=== PATIENT | male | born 1960 | race Caucasian/White ===

== ENCOUNTER 2017-05-19 16:43 | Emergency (ER) | payer OTHER ==
--- NOTE | 2017-05-19 17:14 | C.PDOC ---
History Of Present Illness 56 y/o male with a PMHx of thyroid disease and hypertension, who presents to the ED complaining of dizziness, head spinning, and aching of his right hand, onset last night. Today symptoms persisted. Last night he also told family members he had a pinching, stabbing pain in the left chest, which lasted 2-3 sec and was gone, with no shortness of breath. Now patient is stating he has no recollection of this. His main complaint is the aching pain of right hand, at the mid-hand down through fingers, associated with weakness when forming a grasp. Also complains of tightness to muscles in the back of his head, still has full ROM of the cervical spine/head. PMD: Anna Zuniga Time Seen by Provider: 05/19/17 16:59 Chief Complaint (Nursing): Chest Pain History Per: Patient History/Exam Limitations: no limitations Onset/Duration Of Symptoms: Days (x 2) Current Symptoms Are (Timing): Gone (chest pain) Past Medical History Reviewed: Historical Data, Nursing Documentation, Vital Signs Vital Signs: Last Vital Signs Temp Pulse 66 05/19/17 17:00 Resp 15 05/19/17 17:00 BP 152/88 H 05/19/17 17:00 Pulse Ox 97 05/19/17 17:17 - Medical History PMH: Benign Prostatic Hyperplasia, HTN, Hypercholesterolemia, Hypothyroidism Family History: States: No Known Family Hx - Social History Hx Tobacco Use: No Hx Alcohol Use: No Hx Substance Use: No - Immunization History Hx Tetanus Toxoid Vaccination: No Hx Influenza Vaccination: No Hx Pneumococcal Vaccination: No Review Of Systems Except As Marked, All Systems Reviewed And Found Negative. Cardiovascular: Positive for: Chest Pain Respiratory: Negative for: Shortness of Breath Musculoskeletal: Positive for: Neck Pain (Tightness of muscles), Hand Pain ( Right mid-hand through fingers) Neurological: Positive for: Weakness (forming grasp - right hand), Dizziness ( and head spinning) Physical Exam - Physical Exam Appears: Well, Non-toxic, No Acute Distress Skin: Normal Color, Warm, Dry Head: Atraumatic, Normacephalic Eye(s): bilateral: Normal Inspection, PERRL, EOMI Oral Mucosa: Moist Neck: Normal, Normal ROM, Supple Chest: Symmetrical Cardiovascular: Rhythm Regular, No Murmur Respiratory: Normal Breath Sounds, No Accessory Muscle Use Gastrointestinal/Abdominal: Normal Exam, Bowel Sounds, Soft, No Tenderness Back: Normal Inspection, No Vertebral Tenderness, No Muscle Spasm, No Paraspinal Tenderness Extremity: Normal ROM, Other (Right hand is warm, neurovascularly intact. No cyanosis or pale color noted. Sensation intact.) Extremity: Right: Atraumatic, Bilateral: Atraumatic, Normal Color And Temperature Neurological/Psych: Oriented x3, Normal Speech, Normal Motor, Normal Sensation Gait: Steady ED Course And Treatment - Laboratory Results Result Diagrams: 05/19/17 17:19 05/19/17 17:19 Lab Interpretation: No Acute Changes ECG: Interpreted By Me ECG Rhythm: Sinus Rhythm (with short ME) O2 Sat by Pulse Oximetry: 97 (RA) Pulse Ox Interpretation: Normal Reevaluation Time: 19:06 Reassessment Condition: Unchanged Medical Decision Making Medical Decision Making: Time: 17:05 Plan: --EKG --CMP --Magnesium --Troponin I --CBC --Tylenol 650 mg PO Disposition Counseled Patient/Family Regarding: Studies Performed, Diagnosis, Need For Followup - Disposition Referrals: Anna Zuniga MD [Staff Provider] - Disposition: HOME/ ROUTINE Disposition Time: 19:09 Condition: STABLE Instructions: Musculoskeletal Pain (ED) Forms: [employer] (Yoruba) - Clinical Impression Clinical Impression: Musculoskeletal pain - Scribe Statement The provider has reviewed the documentation as recorded by the Scribyarelis Rouse All medical record entries made by the Scribe were at my direction and personally dictated by me. I have reviewed the chart and agree that the record accurately reflects my personal performance of the history, physical exam, medical decision making, and the department course for this patient. I have also personally directed, reviewed, and agree with the discharge instructions and disposition.
[2017-05-19 17:22] LABS: BASO # 0.1 K/uL (0.0-0.2); BASO % 1.1 % (0.0-2.0); EOS # 0.4 K/uL (0.0-0.7); EOS % 6.3 % (0.0-4.0); HEMATOCRIT 38.3 % (35.0-51.0); LYMPH # 1.8 K/uL (1.0-4.3); LYMPH % 29.1 % (20.0-40.0); MEAN CELL VOLUME 84.1 fL (80.0-94.0); MEAN CORPUSCULAR HEMOGLOBIN 29.2 pg (27.0-31.0); MEAN CORPUSCULAR HGB CONC 34.8 g/dL (33.0-37.0); MONO # 0.5 K/uL (0.0-0.8); MONO % 8.6 % (0.0-10.0); NRBC % 0.1 % (0.0-2.0); RED CELL DISTRIBUTION WIDTH 13.1 % (11.5-14.5); WHITE BLOOD COUNT 6.1 K/uL (4.8-10.8)
[2017-05-19 17:36] LABS: CHLORIDE 104 mmol/L (98-107)
[2017-05-19 17:37] LABS: POTASSIUM 3.9 mmol/L (3.6-5.2); SODIUM 141 mmol/L (132-148)
[2017-05-19 17:39] LABS: ALB/GLOB RATIO 1.1 (1.0-2.1); ALKALINE PHOSPHATASE 62 U/L (38-126); ALT/SGPT 28 U/L (21-72); AST/SGOT 21 U/L (17-59); BILIRUBIN,TOTAL 0.4 mg/dL (0.2-1.3); BLOOD UREA NITROGEN 14 mg/dL (9-20); CARBON DIOXIDE 20 mmol/L (22-30); GFR AFRICAN-AMERICAN > 60; TOTAL PROTEIN 7.4 g/dL (6.3-8.3)
[2017-05-19 17:40] LABS: CALCIUM 8.9 mg/dl (8.6-10.4); GLUCOSE,RANDOM 104 mg/dL (75-110); MAGNESIUM 1.8 mg/dL (1.6-2.3)
[2017-05-19 19:26] VITALS: BP 146/80; PULSE 62; RESP 16; TEMP 98.1; O2SAT 99
--- NOTE | 2017-05-21 12:31 | CARD ---
APPROVED REPORT EKG Measurement Heart [id number] <Conclusion> Sinus rhythm with short IA Otherwise normal ECG
== END 2017-05-19 19:26 | disposition home or self-care (01) ==
LOC: C.ER 16:43
DX: M79.1 Myalgia (principal)

== ENCOUNTER 2017-10-21 23:32 | Emergency (ER) | payer OTHER ==
[2017-10-21 23:44] VITALS: BP 164/104; PULSE 67; RESP 18; TEMP 98; O2SAT 96
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
== END 2017-10-22 00:10 | disposition home or self-care (01) ==
LOC: C.ER 23:32
DX: S39.012A Strain of muscle, fascia and tendon of lower back, initial encounter (principal); V49.9XXA Car occupant (driver) (passenger) injured in unspecified traffic accident, initial encounter; I10 Essential (primary) hypertension; E03.9 Hypothyroidism, unspecified; E78.00 Pure hypercholesterolemia, unspecified; N40.0 Benign prostatic hyperplasia without lower urinary tract symptoms